=== PATIENT | male | born 1945 | race Caucasian/White ===

== ENCOUNTER 2022-01-17 12:02 | Emergency (ER) | payer OTHER ==
[~2022-01-17] VITALS: Ht 172.7 cm; Wt 70.3 kg
[2022-01-17 12:10] VITALS: BP 136/74
--- NOTE | 2022-01-17 12:13 | NUR ---
AMBULATED TO BED 2
[2022-01-17] MEDS ORDERED: AMOXIL/CLAVULANATE 875/125 MG 1 TAB PO ONE (12:20)
[2022-01-17] MEDS ORDERED: AMOX-999 PO (12:50)
[2022-01-17] MEDS ORDERED: SULF-59 PO (12:50)
--- NOTE | 2022-01-17 13:00 | NUR ---
76 y/o male bib self with c/o cat bite to right index finger x 2 days ago. Patient was playing with his cat and he has a puncture wound on the lateral index finger. Patient has swelling and redness to the area. Patient is complaining of 3/10 pain level. Medical history: Prostate Cancer, HTN NKDA
--- NOTE | 2022-01-17 13:30 | NUR ---
Faxed animal report to [facility]
[2022-01-17 13:45] VITALS: BP 117/62
--- NOTE | 2022-01-17 13:45 | NUR ---
Patient discharged with v/s stable. Written and verbal after care instructions given. Patient alert, oriented and verbalized understanding of instructions. Ambulatory with steady gait. All questions addressed prior to discharge. ID band removed. Patient advised to follow up with PMD. Rx of Augmentin and Bactrim given. Opportunity to ask questions provided and answered.
--- NOTE | 2022-01-17 13:46 | NUR ---
The patient's care was reviewed and supervised by Lizeth Patel RN.
== END 2022-01-17 13:45 | disposition home or self-care (01) ==
LOC: MED 12:02
DX: S61.250A Open bite of right index finger without damage to nail, initial encounter (principal); W55.01XA Bitten by cat, initial encounter; Y93.89 Activity, other specified; Y92.89 Other specified places as the place of occurrence of the external cause; Y99.8 Other external cause status
CPT/HCPCS: 73130; 90471; 90715; 99283; Q0092